=== PATIENT | female | born 1995 | race Caucasian/White ===

== ENCOUNTER 2021-05-24 11:08 | Inpatient (IN) ==
[2021-05-24] MEDS ORDERED: Metoclopramide 10 MG/2 ML VIAL IVP ONE (11:26)
[2021-05-24] MEDS ORDERED: Famotidine 20 MG/2 ML VIAL IVP ONE (11:26)
[2021-05-24] MEDS ORDERED: Oxytocin 20 units/ LR 1000 mL 20 UNIT/1,000 ML BAG IVC ONE (11:26)
[2021-05-24] MEDS ORDERED: CeFAZolin Syr 3,000MG/30 ML 3,000 MG/30 ML SYRINGE IVPB ONE (11:26)
[2021-05-24] MEDS ORDERED: Ringers Solution, Lactated 1,000 ML IVC ONE (11:26)
[2021-05-24] MEDS ORDERED: Oxytocin 20 units/ LR 1000 mL 20 UNIT/1,000 ML BAG IVC SCH ×2 (11:30→18:31)
[2021-05-24] MEDS ORDERED: Ringers Solution, Lactated 1,000 ML IVC SCH (11:30)
[2021-05-24] MEDS ORDERED: FLU Vac QV 21-22 (6Month+)/PF 0.5 ML SYRINGE IM ONE (12:12)
[2021-05-24 13:02] LABS: Amphetamine Screen,Urine Negative ng/mL (Cutoff=1000); Barbiturate Screen,Urine Negative ng/mL (Cutoff=200); Benzodiazepines Screen,Urine Negative ng/mL (Cutoff=200); Cannabinoid Screen,Urine Positive ng/mL (Cutoff = 50); Cocaine Screen,Urine Negative ng/mL (Cutoff= 300); Opiate Screen,Urine Negative ng/mL (Cutoff=300); Phencyclidine Screen,Urine Negative ng/mL (Cutoff=25)
[2021-05-24 13:21] LABS: Influenza A PCR Negative (Negative); Influenza B PCR Negative (Negative); Resp. Syncytial Virus PCR Negative (Negative)
[2021-05-24 13:24] LABS: SARS-CoV-2 by PCR (In House) Negative (Negative)
[2021-05-24] MEDS ORDERED: Ondansetron 4 MG/2 ML VIAL ONE (13:36)
[2021-05-24] MEDS ORDERED: EPHEDrine 50 MG/ML VIAL ONE (13:36)
[2021-05-24] MEDS ORDERED: *HR* Morphine Sulfate/PF 10 MG/10 ML AMPUL ONE (13:36)
[2021-05-24] MEDS ORDERED: *HR* FentaNYL (PF) 100 MCG/2 ML VIAL ONE (13:36)
[2021-05-24] MEDS ORDERED: *HR* Oxytocin 10 UNIT/ML VIAL IM ONE (13:37)
[2021-05-24] MEDS ORDERED: Ketorolac 30 MG/ML VIAL ONE (13:37)
[2021-05-24 14:03] LABS: Basophils % 0.3 %; Eosinophils % 0.1 %; Hematocrit 38.8 % (35.3-44.9); Hemoglobin 12.2 g/dL (11.5-15.4); Immature Granulocytes % 0.3 % (0-4); Lymphocytes # 2.2 K/mcL (0.6-4.6); Mean Corpuscular HGB Conc 31.4 g/dL (31.6-35.5); Mean Corpuscular Hemoglobin 30.1 pg (28.0-33.3); Mean Corpuscular Volume 95.8 fL (83.0-100.0); Mean Platelet Volume 10.7 fL (9.4-12.4); Monocytes # 0.6 K/mcL (0.0-1.3); Monocytes % 5.1 %; Neutrophils # 8.7 K/mcL (1.6-8.9); Platelet Count 311 K/mcL (140-400); Red Blood Count 4.05 M/mcL (3.82-4.97); Red Cell Distribution Width 14.3 % (11.5-14.5); Segmented Neutrophils % 75.2 %; White Blood Count 11.6 K/mcL (4.3-11.1)
[2021-05-24] MEDS ORDERED: *HR* Midazolam HCl 2 MG/2 ML VIAL ONE (14:08)
[2021-05-24] MEDS ORDERED: Ringers Solution, Lactated 1,000 ML ONE (14:12)
[2021-05-24] MEDS ORDERED: *HR* Magnesium Sulfate 1 GM/2 ML VIAL ONE (14:48)
[2021-05-24] MEDS ORDERED: *HR* Labetalol 20 MG/4 ML SYRINGE IVP ONE ×2 (15:20→16:10)
[2021-05-24 16:25] LABS: Creatinine,Urine 89 mg/dL; Protein/Creatinine Ratio,Urine 0.14 mg/mg (0.00-0.20)
[2021-05-24] MEDS ORDERED: Ondansetron 4 MG/2 ML VIAL IVP PRN (18:31)
[2021-05-24] MEDS ORDERED: Simethicone 80 MG TAB.CHEW PO PRN (18:31)
[2021-05-24] MEDS ORDERED: Rho Immune Globulin 1,500 UNIT SYRINGE IM ONE (18:31)
[2021-05-24] MEDS ORDERED: Metoclopramide 10 MG/2 ML VIAL IVP PRN (18:31)
[2021-05-24] MEDS ORDERED: Fluconazole 150 MG TABLET PO ONE (18:31)
[2021-05-24] MEDS: Ibuprofen 600 MG TABLET PO SCH (18:50)
[2021-05-24] MEDS: Acetaminophen 325 MG TABLET PO SCH (18:50)
[2021-05-24 21:14] LABS: Alanine Aminotransferase 11 Units/L (7-52); Aspartate Amino Transferase 18 Units/L (13-39); BUN/Creatinine Ratio 16 (6-26); Blood Urea Nitrogen 9 mg/dL (6-20); Lactate Dehydrogenase 209 Units/L (140-271); Uric Acid 4.4 mg/dL (2.3-7.6); eGFR For African Americans > 60 (> 60); eGFR For Non-African Americans > 60 (> 60)
[2021-05-25] MEDS: Ibuprofen 600 MG TABLET PO SCH ×4 (00:46→19:47)
[2021-05-25] MEDS: Acetaminophen 325 MG TABLET PO SCH ×4 (00:47→19:47)
[2021-05-25] MEDS: Fluconazole 150 MG TABLET PO SCH (08:51)
[2021-05-25] MEDS: *HR* Enoxaparin 80 MG/0.8 ML SYRINGE SQ SCH ×2 (08:51→19:48)
[2021-05-25] MEDS ORDERED: Prenatal Vit/FA 1 EACH TABLET PO SCH (09:00)
[2021-05-25] MEDS ORDERED: Artificial Tears SOLN 15 ML BOTTLE BOTH EYES PRN (13:12)
[2021-05-25] MEDS: *HR* OxyCODONE/APAP 5/325 TABLET PO PRN (21:12)
[2021-05-26] MEDS: Acetaminophen 325 MG TABLET PO SCH ×3 (02:19→15:49)
[2021-05-26] MEDS: *HR* OxyCODONE/APAP 5/325 TABLET PO PRN ×2 (02:19→14:53)
[2021-05-26] MEDS: Ibuprofen 600 MG TABLET PO SCH ×3 (02:20→15:48)
[2021-05-26 08:06] VITALS: BP 139/81; PULSE 75; TEMP 97.9; O2SAT 100
[2021-05-26] MEDS: Fluconazole 150 MG TABLET PO SCH (09:13)
[2021-05-26] MEDS: *HR* Enoxaparin 80 MG/0.8 ML SYRINGE SQ SCH (09:13)
[2021-05-26] MEDS ORDERED: FLU Vac QV 21-22 (6Month+)/PF 0.5 ML SYRINGE IM ONE (16:44)
== END 2021-05-26 18:15 | disposition home or self-care (01) | DRG 539 ==
LOC: 1NENULAB 11:08 → EDSTATUS 12:00 → 1NENUOBS 18:26
PROVIDERS: ADMIT Obstetrics & Gynecology; ATTEND Obstetrics & Gynecology